=== PATIENT | female | born 1950 | race Caucasian/White ===

== ENCOUNTER 2022-03-04 12:58 | Emergency (ER) | payer BC, MEDICARE, OTHER ==
[~2022-03-04] VITALS: Ht 162.6 cm; Wt 74.8 kg
[2022-03-04 13:02] VITALS: BP 195/99
[2022-03-04] MEDS ORDERED: DICL20GE TP (14:48)
--- NOTE | 2022-03-04 15:00 | NUR ---
Patient discharged with v/s stable. Written and verbal after care instructions given and explained. Patient alert, oriented and verbalized understanding of instructions. Ambulatory with steady gait. All questions addressed prior to discharge. ID band removed. Patient advised to follow up with PMD. Rx of VOLTARIN given. Patient educated on indication of medication including possible reaction and side effects. Opportunity to ask questions provided and answered.
== END 2022-03-04 15:00 | disposition home or self-care (01) ==
LOC: MED 12:58
DX: G50.0 Trigeminal neuralgia (principal); E03.9 Hypothyroidism, unspecified; Z85.9 Personal history of malignant neoplasm, unspecified
CPT/HCPCS: 99283